=== PATIENT | male | born 1955 | race Caucasian/White ===

== ENCOUNTER 2022-11-03 11:47 | Emergency (ER) | payer MEDICARE, OTHER ==
[~2022-11-03] VITALS: Ht 170.2 cm; Wt 81.6 kg
[2022-11-03] MEDS ORDERED: ACETAMINOPHEN ES 500 MG TABLET PO ONE (12:00)
[2022-11-03] MEDS ORDERED: ACETAMINOPHEN ES 500 MG TABLET ONE (12:02)
[2022-11-03] MEDS ORDERED: RISP3TAB61 PO (12:50)
[2022-11-03] MEDS ORDERED: HALO5TAB PO (12:50)
[2022-11-03] MEDS ORDERED: BENZ2TAB7 PO (12:50)
[2022-11-03] MEDS ORDERED: LEVO330T6 PO (12:50)
[2022-11-03] MEDS ORDERED: ASCO500C6 PO (12:50)
[2022-11-03] MEDS ORDERED: CLON2TAB11 PO (12:50)
[2022-11-03] MEDS ORDERED: GEMF600T90 PO (12:50)
[2022-11-03] MEDS ORDERED: METO50TA16 PO (12:50)
[2022-11-03] MEDS ORDERED: ONDA4TAB11 PO (12:57)
[2022-11-03] MEDS ORDERED: NITR0.4T48 SL (12:57)
[2022-11-03] MEDS ORDERED: ACET-73 PO (12:57)
[2022-11-03] MEDS ORDERED: GABA-532 PO (12:57)
[2022-11-03] MEDS ORDERED: OMEG1000 PO (12:57)
[2022-11-03] MEDS ORDERED: CHOL100045 PO (12:57)
[2022-11-03] MEDS ORDERED: ZINC220C6 PO (12:57)
--- NOTE | 2022-11-03 13:38 | NUR ---
Pt to be d/c back to his assisted living facility, called [facility] for transport, eta 60mins. Pt sitting in chair and watching TV at this time with NAD noted.
--- NOTE | 2022-11-03 14:30 | NUR ---
Pt d/c back to her assisted living facility via [facility]. ACI given to EMT. NAD noted.
== END 2022-11-03 14:39 ==
LOC: ER 11:47
DX: S22.31XA Fracture of one rib, right side, initial encounter for closed fracture (principal); W01.198A Fall on same level from slipping, tripping and stumbling with subsequent striking against other object, initial encounter; Y93.E1 Activity, personal bathing and showering; Y92.091 Bathroom in other non-institutional residence as the place of occurrence of the external cause; E78.5 Hyperlipidemia, unspecified; I12.9 Hypertensive chronic kidney disease with stage 1 through stage 4 chronic kidney disease, or unspecified chronic kidney disease; N18.9 Chronic kidney disease, unspecified; F20.9 Schizophrenia, unspecified; G62.9 Polyneuropathy, unspecified; Z87.19 Personal history of other diseases of the digestive system; Z86.16 Personal history of COVID-19; M25.511 Pain in right shoulder
CPT/HCPCS: 71101; 73030; A4663; A9150